=== PATIENT | male | born 1965 | race Caucasian/White ===

== ENCOUNTER 2023-01-09 07:04 | Outpatient (CLI) | payer OTHER, SELFPAY ==
--- NOTE | 2023-01-09 | ECG_ITS ---
Measurements Intervals [place] Rate: 51 P: 39 ID: [id number] QRS: 12 QRSD: 96 T: 35 QT: 422 QTc: 392 Interpretive Statements SINUS BRADYCARDIA NO PREVIOUS ECG AVAILABLE FOR COMPARISON Electronically Signed On 01-09-2023 15:43:41 CDT by Juhi Ewing M.D.
== END 2023-01-09 07:05 | disposition home or self-care (01) ==
PROVIDERS: PCP Physician Assistant; Visit Provider Physician Assistant
DX: Z01.89 Encounter for other specified special examinations (principal)
CPT/HCPCS: 93005